=== PATIENT | female | born 1960 | race Caucasian/White ===

== ENCOUNTER → 2021-04-16 | Outpatient (CLI) | payer OTHER ==
--- NOTE | 2021-04-16 15:22 | XR ---
EXAMINATION TYPE: XR knee limited bilateral DATE OF EXAM: 04/16/2021 COMPARISON: NONE HISTORY: Pain TECHNIQUE: Three views are submitted. FINDINGS: Right knee: There is severe narrowing of the patellofemoral joint and medial compartment of the knee joint. Hypertrophic spurring noted. No erosive changes. No acute fracture or dislocation. Lateral vie w demonstrates posterior ossification relative to the knee joint. Ossific density along the anterior margin of the infrapatellar fat pad also noted. Left knee: Severe narrowing of the patellofemoral joint and medial compartment of the knee joint with hypertrophic spurring. IMPRESSION: 1. Severe osteoarthritis bilaterally.
== END | disposition home or self-care (01) ==
LOC: RADXRMAIN 14:42
PROVIDERS: ATTEND Family Medicine
DX: M17.0 Bilateral primary osteoarthritis of knee (principal)